=== PATIENT | male | born 1995 | race American Indian/Alaskan Native ===

== ENCOUNTER 2019-05-23 21:22 | Emergency (ER) | payer OTHER ==
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
[2019-05-23] MEDS ORDERED: ANTIBIOTIC OINT TP ONE (23:16)
[2019-05-23 23:57] VITALS: BP 110/80
== END 2019-05-23 23:56 | disposition home or self-care (01) ==
LOC: ED 21:22
DX: S51.011A Laceration without foreign body of right elbow, initial encounter (principal); M54.2 Cervicalgia; M54.6 Pain in thoracic spine; V47.6XXA Car passenger injured in collision with fixed or stationary object in traffic accident, initial encounter; Y93.89 Activity, other specified; Y92.410 Unspecified street and highway as the place of occurrence of the external cause; Y99.8 Other external cause status
CPT/HCPCS: 72040

== ENCOUNTER 2019-05-29 10:10 | Emergency (ER) | payer OTHER ==
[2019-05-29 10:17] VITALS: BP 131/97
[2019-05-29] MEDS ORDERED: XYLOCAINE 1% MPF 5 mL INFILTRATI ONE (10:38)
[2019-05-29] MEDS ORDERED: BOOSTRIX IM ONE (10:38)
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
== END 2019-05-29 11:27 | disposition home or self-care (01) ==
LOC: ED 10:10
DX: S61.412A Laceration without foreign body of left hand, initial encounter (principal); F17.200 Nicotine dependence, unspecified, uncomplicated; F12.10 Cannabis abuse, uncomplicated; W45.8XXA Other foreign body or object entering through skin, initial encounter; Y93.89 Activity, other specified; Y92.89 Other specified places as the place of occurrence of the external cause; Y99.8 Other external cause status
CPT/HCPCS: 90471; 90715; 99282

== ENCOUNTER 2019-06-02 11:06 | Emergency (ER) | payer OTHER ==
[2019-06-02 11:13] VITALS: BP 142/92
--- NOTE | 2019-06-02 11:14 | Emergency Department Report ---
Blank Doc - Documentation Documentation: This is a 23-year-old male that presents with left hand pain and swelling. Had stitches places 4 days ago. Denies any new injuries. This initial assessment/diagnostic orders/clinical plan/treatment(s) is/are subject to change based on patient's health status, clinical progression and re- assessment by fellow clinical providers in the ED. Further treatment and workup at subsequent clinical providers discretion. Patient/guardians urged not to elope from the ED as their condition may be serious if not clinically assessed and managed. Initial orders include: 1- Patient sent to [facility] for further evaluation and treatment
--- NOTE | 2019-06-02 12:24 | Emergency Department Report ---
ED Extremity Problem HPI - General Chief complaint: Extremity Problem,Nontraumatic Stated complaint: SUTURE REMOVED Time Seen by Provider: 06/02/19 11:12 Source: patient Mode of arrival: Ambulatory Limitations: No Limitations - History of Present Illness Initial comments: Patient has sutures placed 4 days ago to the left hand on the dorsal surface. Patient states he's had some swelling and small amount of purulent material coming from in between the sutures. Patient states there is now some aching throbbing pain as well. Patient states that he has some discomfort in the left axilla as well. Patient denies any fever nausea vomiting at this time. - Related Data Previous Rx's Medication Instructions Recorded Last Taken Type Bacitracin Zinc Oint [Antibiotic 1 applicatio TP BID #1 oint...g. 05/23/19 Unknown Rx Oint] Cyclobenzaprine [Flexeril] 10 mg PO QHS PRN #10 tablet 05/23/19 Unknown Rx Ibuprofen [Motrin 800 MG tab] 800 mg PO Q8HR PRN #14 tablet 05/23/19 Unknown Rx Sulfamethoxazole/Trimethoprim 1 each PO BID #14 tablet 06/02/19 Unknown Rx [Bactrim DS TAB] predniSONE [Deltasone] 20 mg PO QDAY #5 tab 06/02/19 Unknown Rx traMADol [Ultram] 50 mg PO Q6HR PRN #12 tablet 06/02/19 Unknown Rx Allergies Allergy/AdvReac Type Severity Reaction Status Date / Time No Known Allergies Allergy Verified 05/29/19 10:11 ED Review of Systems ROS: Stated complaint: SUTURE REMOVED Other details as noted in HPI Comment: All other systems reviewed and negative ED Past Medical Hx - Past Medical History Previous Medical History?: No Additional medical history: bronchitis - Surgical History Past Surgical History?: No - Social History Smoking Status: Never Smoker Substance Use Type: None - Medications Home Medications: Home Medications Medication Instructions Recorded Confirmed Last Taken Type Bacitracin Zinc Oint [Antibiotic 1 applicatio TP BID #1 oint...g. 05/23/19 Unknown Rx Oint] Cyclobenzaprine [Flexeril] 10 mg PO QHS PRN #10 tablet 05/23/19 Unknown Rx Ibuprofen [Motrin 800 MG tab] 800 mg PO Q8HR PRN #14 tablet 05/23/19 Unknown Rx Sulfamethoxazole/Trimethoprim 1 each PO BID #14 tablet 06/02/19 Unknown Rx [Bactrim DS TAB] predniSONE [Deltasone] 20 mg PO QDAY #5 tab 06/02/19 Unknown Rx traMADol [Ultram] 50 mg PO Q6HR PRN #12 tablet 06/02/19 Unknown Rx ED Physical Exam - General Limitations: No Limitations General appearance: alert, in no apparent distress - Head Head exam: Present: atraumatic, normocephalic - Eye Eye exam: Present: normal appearance - ENT ENT exam: Present: mucous membranes moist - Neck Neck exam: Present: normal inspection - Respiratory Respiratory exam: Absent: respiratory distress - Cardiovascular Cardiovascular Exam: Present: regular rate, normal rhythm - GI/Abdominal GI/Abdominal exam: Present: soft - Rectal Rectal exam: Present: deferred - Extremities Exam Extremities exam: Present: normal inspection - Expanded Upper Extremity Exam Left Hand Wrist exam: Present: tenderness, swelling, erythema, other (no flucuance or purulent drainage at this time) - Back Exam Back exam: Present: normal inspection - Neurological Exam Neurological exam: Present: alert, oriented X3 - Psychiatric Psychiatric exam: Present: normal affect, normal mood - Skin Skin exam: Present: warm, dry, intact, normal color. Absent: rash ED Course Vital Signs 06/02/19 06/02/19 11:11 11:49 Temperature 98.1 F Pulse Rate 74 Respiratory 20 15 Rate Blood Pressure 142/92 O2 Sat by Pulse 100 Oximetry ED Medical Decision Making - Medical Decision Making 3 sutures were removed by nursing staff. The wound did not have any dehiscence and there is no purulent drainage from the small holes where the sutures were placed. Patient will be started on antibiotics again continue with warm water soaks. Critical care attestation.: If time is entered above; I have spent that time in minutes in the direct care of this critically ill patient, excluding procedure time. ED Disposition Clinical Impression: Wound infection, Cellulitis of hand Disposition: DC-01 TO HOME OR SELFCARE Is pt being admited?: No Does the pt Need Aspirin: No Condition: Stable Instructions: Cellulitis (ED) Referrals: OLGA PIZANO MD [Staff Physician] - as needed [facility] CAMILA DICKERSON MD [Primary Care Provider] - 3-5 Days Time of Disposition: 12:23
== END 2019-06-02 12:48 | disposition home or self-care (01) ==
LOC: ED 11:06
DX: L03.114 Cellulitis of left upper limb (principal); T81.49XA Infection following a procedure, other surgical site, initial encounter; Z79.899 Other long term (current) drug therapy; Y92.89 Other specified places as the place of occurrence of the external cause